=== PATIENT | female | born 1980 | race American Indian/Alaskan Native ===

== ENCOUNTER 2018-05-04 08:19 | Day surgery (SDC) | payer MEDICAID ==
[2018-05-04] MEDS ORDERED: DILAUDID ONE (09:27)
[2018-05-04] MEDS ORDERED: XYLOCAINE MPF 2% ONE (09:27)
[2018-05-04] MEDS ORDERED: DIPRIVAN 10 MG/ML IV ONE (09:27)
--- NOTE | 2018-05-04 09:49 | Short Stay Summary ---
Short Stay Documentation Date of service: 05/04/18 Narrative H&P: Pt is a 37yo BF LMP 01/29/18 presents from the office for a D&C due to IUFD @ 13 weeks. Pelvic u/s confirmed no FHT's. Pt complains of vaginal spotting and cramping. She is therefore scheduled for a D&C. - History Principal diagnosis: IUFD H&P: obtained from office Past Medical History: No medical history Past Surgical History: Other (D&C) Social history: no significant social history, single - Allergies and Medications Current Medications: Allergies No Known Allergies Allergy (Unverified 05/04/18 09:31) Active Medications Cefazolin Sodium (Ancef/Sterile Water 2 Gm/20 Ml) 2 gm in 20 mls @ 80 mls/hr IV PREOP NR; Protocol - Physical exam General appearance: no acute distress Integumentary: no rash HEENT: Atraumatic Lungs: Clear to auscultation Breasts: deferred Heart: Regular rate Gastrointestinal: normal Female Genitourinary: deferred Rectal Exam: deferred Extremities: no ischemia, No edema Neurological: Normal gait, Normal speech - Brief post op/procedure progress note Date of procedure: 05/04/18 Pre-op diagnosis: 1. IUFD @ 13 weeks 2. Missed Post-op diagnosis: same Procedure: Dilatation and curettage Anesthesia: MAC Findings: A 10-12 week size uterus with moderate amounts of products of conception Surgeon: MELYSSA HOOPER Estimated blood loss: 50-100ml Pathology: list (POC) Specimen disposition: to lab Condition: stable - Hospital course Hospital course: Unremarkable. - Disposition Condition at discharge: Good Disposition: DC-01 TO HOME OR SELFCARE - Discharge Diagnoses (1) IUFD at less than 20 weeks of gestation Status: Resolved (2) Missed with demise before 20 completed weeks of gestation Status: Resolved Short Stay Discharge Plan Activity: no restrictions Diet: regular Follow up with: PRIMARY CARE, [Primary Care Provider] - 7 Days MELYSSA HOOPER MD [Staff Physician] - 14 Days FLORY BOWDEN CNM [Advanced Practice Nurse] - 14 Days Prescriptions: Doxycycline [Vibramycin CAP] 100 mg PO Q12HR #14 capsule Ibuprofen [Motrin] 800 mg PO Q8HR PRN #30 tablet PRN Reason: Pain, Moderate (4-6) Methylergonovine [Methergine] 0.2 mg PO Q8HR #6 tablet
[2018-05-04] MEDS ORDERED: VERSED IV NR (09:59)
[2018-05-04] MEDS ORDERED: ANCEF/STERILE WATER 2 GM/20 ML 2 GM/20 ML SYRINGE IV NR (10:00)
[2018-05-04] MEDS ORDERED: LACTATED RINGERS 1,000 ML IV SCH (10:00)
[2018-05-04 10:13] LABS: Hematocrit 41.2 % (30.3-42.9); Hemoglobin 13.7 gm/dl (10.1-14.3)
[2018-05-04] MEDS ORDERED: NACL 0.9% IR ONE (10:24)
[2018-05-04] MEDS ORDERED: ZOFRAN ONE (10:27)
[2018-05-04] MEDS ORDERED: DECADRON ONE (10:27)
--- NOTE | 2018-05-04 10:40 | Operative Report ---
Operative Report Operative Report: PREOPERATIVE DIAGNOSIS: 1. Intrauterine demise at 13 weeks 2. Missed POSTOPERATIVE DIAGNOSIS: Same OPERATIVE PROCEDURE: Dilatation and curettage. SURGEON: Alejandro Ferguson MD ANESTHESIA: Gen. mask ANESTHESIOLOGIST: Dr. Morales ESTIMATED BLOOD LOSS: 50 mL FINDINGS: A 10-12 week size uterus with moderate amounts of products of conception COMPLICATIONS: None COUNTS: Correct x3. PROCEDURE: After the patient was correctly identified, and after general anesthesia was administered, the patient was prepped and draped in the usual sterile fashion and placed in dorsal lithotomy position. First, the bladder was emptied using a straight catheter. Next, a speculum was placed in the vaginal vault and the anterior lip of the cervix was grasped using a single- tooth tenaculum. The uterus was sounded to 12 cm. The cervical os was sequentially dilated, and an 12 mm vaccurette was used to suction blood and products of conception from the uterine cavity. After all the products of conception were removed, the procedure was considered complete. All instruments were removed from the vagina. The patient tolerated the procedure well and was transferred to the recovery room in stable condition.
--- NOTE | 2018-05-04 10:47 | Anesthesia Day of Surgery ---
Anesthesia Day of Surgery - Day of Surgery Patient Examined: Yes Patient H&P Reviewed: Yes Patient is NPO: Yes
--- NOTE | 2018-05-04 10:48 | Anesthesia Consultation ---
Anesthesia Consult and Med Hx Date of service: 05/04/18 - Airway Anesthetic Teeth Evaluation: Good ROM Head & Neck: Adequate Mental/Hyoid Distance: Adequate Mallampati Class: Class II Intubation Access Assessment: Probably Good - Pre-Operative Health Status ASA Pre-Surgery Classification: ASA2 Proposed Anesthetic Plan: General
[2018-05-04] MEDS ORDERED: MOTRIN PO PRN (12:19)
[2018-05-04 13:08] VITALS: BP 135/95
== END 2018-05-04 13:45 | disposition home or self-care (01) ==
LOC: OR 08:19
PROVIDERS: ATTEND Obstetrics & Gynecology
DX: O02.1 Missed abortion (principal); Z3A.13 13 weeks gestation of pregnancy; Z98.890 Other specified postprocedural states
CPT/HCPCS: 36415; 59820; 85014; 85018; 85461; 86850; 86900; 86901; 88305; J0690; J1100; J1170; J2250; J2405; J2704; J2790; J7120

== ENCOUNTER 2019-02-19 07:44 | Day surgery (SDC) | payer MEDICAID ==
[~2019-02-19 07:44] MED LIST: DIPRIVAN 10 MG/ML IV ONE; KETALAR ONE; NACL 0.9% IR ONE; SUBLIMAZE ONE
[2019-02-19] MEDS ORDERED: XYLOCAINE MPF 2% ONE (07:58)
[2019-02-19] MEDS ORDERED: DECADRON ONE (07:58)
[2019-02-19] MEDS ORDERED: ZOFRAN ONE (07:58)
[2019-02-19] MEDS ORDERED: ZEMURON IV ONE (07:58)
[2019-02-19] MEDS ORDERED: ROBINUL ONE (07:58)
[2019-02-19] MEDS ORDERED: QUELICIN ONE (07:58)
[2019-02-19] MEDS ORDERED: LACTATED RINGERS 1,000 ML IV SCH (08:00)
[2019-02-19] MEDS ORDERED: DILAUDID IV PRN (08:05)
--- NOTE | 2019-02-19 08:16 | Anesthesia Consultation ---
Anesthesia Consult and Med Hx Date of service: 02/19/19 - Airway Anesthetic Teeth Evaluation: Good ROM Head & Neck: Adequate Mental/Hyoid Distance: Adequate Mallampati Class: Class III Intubation Access Assessment: Possibly Difficult (previous easy LMA 3 in 04/2018) - Pulmonary Exam CTA: Yes - Cardiac Exam Cardiac Exam: RRR - Pre-Operative Health Status ASA Pre-Surgery Classification: ASA2 Proposed Anesthetic Plan: General - Pulmonary Hx Smoking: No Hx Respiratory Symptoms: No Hx Sleep Apnea: No - Cardiovascular System Hx Hypertension: No Hx Heart Attack/AMI: No - Central Nervous System Hx Seizures: No CVA: No - Gastrointestinal Hx Gastroesophageal Reflux Disease: No - Endocrine Hx Renal Disease: No Hx Liver Disease: No Hx Insulin Dependent Diabetes: No Hx Non-Insulin Dependent Diabetes: No Hx Hyperthyroidism: Yes (takes methimazole daily) - Other Systems Hx Alcohol Use: Yes (Occas) Hx Obesity: No - Additional Comments Anesthesia Medical History Comments: No hx anesthetic complications.
--- NOTE | 2019-02-19 08:17 | Anesthesia Day of Surgery ---
Anesthesia Day of Surgery - Day of Surgery Patient Examined: Yes Patient H&P Reviewed: Yes Patient is NPO: Yes
--- NOTE | 2019-02-19 08:34 | Short Stay Summary ---
Short Stay Documentation Date of service: 02/19/19 Narrative H&P: Patient is a 38-year-old black female LMP 01/29/2019 who presents for surgical evaluation and treatment of abnormal vaginal bleeding. Ultrasound showed the uterus to measure 8.5 x 7 x 6 cm with a 2 x 1 cm non-homogeneous area seen in the uterine cavity. She is therefore scheduled for a hysteroscopy with dilatation and curettage. - History Principal diagnosis: Abnormal uterine bleeding H&P: obtained from office Past Medical History: No medical history Past Surgical History: Other (D&C) Social history: no significant social history, single - Allergies and Medications Current Medications: Allergies No Known Allergies Allergy (Unverified 02/14/19 12:24) Home Medications Medication Instructions Recorded Confirmed Last Taken Type Methimazole [Tapazole] 10 mg PO BID 02/14/19 02/14/19 Unknown History Multivitamin [Multiple Vitamins] 1 each PO DAILY 02/14/19 02/14/19 Unknown History Active Medications Hydromorphone HCl (Dilaudid) 0.5 mg IV Q10MIN PRN PRN Reason: Pain , Severe (7-10) Stop: 02/19/19 20:00 Lactated Ringer's (Lactated Ringers) 1,000 mls @ 100 mls/hr IV DIRECT SANTI Midazolam HCl (Versed) 2 mg IV PREOP NR Stop: 02/19/19 23:59 - Physical exam General appearance: no acute distress Integumentary: no rash HEENT: Atraumatic Lungs: Clear to auscultation Breasts: deferred Heart: Regular rate Gastrointestinal: normal Female Genitourinary: deferred Rectal Exam: deferred Extremities: no ischemia, No edema Neurological: Normal gait, Normal speech - Brief post op/procedure progress note Date of procedure: 02/19/19 Pre-op diagnosis: Dysfunctional uterine bleeding Post-op diagnosis: same Procedure: 1. Hysteroscopy 2. Dilatation and curettage Anesthesia: MAC Findings: Normal uterus with normal endometrial cavity. No evidence of polyps or retained products of conception. Moderate amount of tissue obtained with D&C. Surgeon: MELYSSA HOOPER Estimated blood loss: minimal Pathology: list (endometrial curettings) Specimen disposition: to lab Condition: stable - Hospital course Hospital course: Unremarkable. - Disposition Condition at discharge: Good Disposition: DC- TO HOME OR SELFCARE - Discharge Diagnoses (1) Dysfunctional uterine bleeding Status: Resolved Short Stay Discharge Plan Activity: no restrictions Diet: regular Follow up with: IGNACIO CURRIE MD [Primary Care Provider] - 7 Days MELYSSA HOOPER MD [Staff Physician] - 14 Days Forms: Outpatient [facility] DC Inst. Prescriptions: Ibuprofen [Motrin] 800 mg PO Q8HR PRN #20 tablet PRN Reason: Pain, Moderate (4-6)
[2019-02-19] MEDS ORDERED: SILVER NITRATE TP ONE (08:47)
[2019-02-19] MEDS ORDERED: NACL 0.9% IR ONE (08:59)
[2019-02-19] MEDS ORDERED: ANCEF/STERILE WATER 2 GM/20 ML 2 GM/20 ML SYRINGE IV NR (09:00)
[2019-02-19] MEDS ORDERED: VERSED IV NR (09:00)
--- NOTE | 2019-02-19 09:46 | Operative Report ---
Operative Report Operative Report: PREOPERATIVE DIAGNOSIS: Dysfunctional uterine bleeding POSTOPERATIVE DIAGNOSIS: Same OPERATIVE PROCEDURE: 1. Hysteroscopy 2. Dilatation and curettage. SURGEON: Alejandro Ferguson MD ANESTHESIA: Gen. LMA ANESTHESIOLOGIST: Dr. Thompson ESTIMATED BLOOD LOSS: 10 mL's FINDINGS: A 10 week size uterus with normal endometrial cavity. No evidence of polyps or retained products of conception. COMPLICATIONS: None COUNTS: Correct x3. PROCEDURE: After the patient was correctly identified as the patient, and after general anesthesia was administered, the patient was prepped and draped in the usual sterile fashion and placed in dorsal lithotomy position. First, the bladder was emptied using a straight catheter. Next, a speculum was placed in the vaginal vault and the anterior lip of the cervix was grasped using a single- tooth tenaculum. The hysteroscope was introduced into the cervical canal, and visualization of endometrial cavity found a normal endometrial cavity without evidence of polyps or retained postoperative conception. The uterus was sounded to 12 cm. A sharp curette was used to scrape the endometrial cavity, and the endometrial curettings were sent to pathology. After satisfactory curettings was obtained, the procedure was considered complete. All instruments were removed from the vagina. The patient tolerated the procedure well and was transferred to the recovery room in stable condition.
[2019-02-19] MEDS ORDERED: NORMODYNE IV PRN (10:09)
[2019-02-19] MEDS ORDERED: NORMODYNE IV ONE (10:11)
[2019-02-19] MEDS ORDERED: BENADRYL IV ONE (10:30)
[2019-02-19] MEDS ORDERED: IBUPROFEN PO PRN (10:30)
[2019-02-19] MEDS ORDERED: BENADRYL ONE (10:31)
[2019-02-19 10:37] VITALS: BP 140/95
--- NOTE | 2019-02-19 14:00 | Post Anesthesia Evaluation ---
- Post Anesthesia Evaluation Patient Participated: Yes Airway Patent: Yes Stable Respiratory Function: Yes Nausea/Vomiting: No Temp > 96.8F: Yes Pain Manageable: Yes Adequeate Hydration: Yes Anesthesia Complications: No
== END 2019-02-19 11:15 | disposition home or self-care (01) ==
LOC: OR 07:44
PROVIDERS: ATTEND Obstetrics & Gynecology
DX: N93.8 Other specified abnormal uterine and vaginal bleeding (principal); N88.8 Other specified noninflammatory disorders of cervix uteri; E05.90 Thyrotoxicosis, unspecified without thyrotoxic crisis or storm; Z79.899 Other long term (current) drug therapy; Z72.89 Other problems related to lifestyle; Z98.890 Other specified postprocedural states
CPT/HCPCS: 58558; 81025; 88305; A4217; J0330; J0690; J1100; J1170; J1200; J2405; J2704; J3010; J7120